=== PATIENT | female | born 1955 | race African-American/Black ===

== ENCOUNTER 2018-03-18 16:08 | Emergency (ER) | END 2018-03-18 17:38 | disposition home or self-care (01) ==

== ENCOUNTER 2018-11-25 07:19 | Observation (INO) | payer OTHER ==
[~2018-11-25] VITALS: Ht 165.1 cm; Wt 88.0 kg
[~2018-11-25 07:19] MED LIST: CARI350T PO; IBUP-1542 PO; MAG355OR14 PO; NAPR-688 PO; unknown meds
[2018-11-25] MEDS ORDERED: NICARDipine HCL 30 MG CAPSULE PO ONE (08:00)
[2018-11-25] MEDS ORDERED: MECLIZINE 12.5 MG TAB PO ONE (08:00)
[2018-11-25] MEDS ORDERED: SOD CHLORIDE 0.9% 1,000 ML IV STA (08:05)
[2018-11-25] MEDS ORDERED: LORAZEPAM 2 MG INJ IV ONE (08:30)
[2018-11-25] MEDS ORDERED: HYDR12.58 PO (09:23)
[2018-11-25] MEDS ORDERED: LISI40TA3 PO (09:23)
[2018-11-25] MEDS ORDERED: METF500T24 PO (09:23)
--- NOTE | 2018-11-25 09:47 | ERD ---
ER Documentation Chief Complaint Chief Complaint dizziness started this morning HPI 63-year-old female history of hypertension, possible noncompliance with medication regimen presents with dizziness. She states that she woke up this morning with a room spinning sensation. She states that it occurs every time she stands up and moves her head from side to side and improves when staying still. She states that she only took 1 of her blood pressure medications this morning. She denies any chest pain or shortness of breath. She denies any headache no vision changes. She is feels somewhat unsteady with her gait. Symptoms are moderate. ROS All systems reviewed and are negative except as per history of present illness. Medications Home Meds Reported Medications Metformin Hcl* (Metformin Hcl*) 500 Mg Tablet, 500 MG PO WITH BREAKFAST DINNE, #60 TAB 11/25/18 Hydrochlorothiazide* (Hydrochlorothiazide*) 12.5 Mg Tablet, 12.5 MG PO DAILY, #30 TAB 11/25/18 Lisinopril* (Lisinopril*) 40 Mg Tablet, 40 MG PO DAILY, #30 TAB 11/25/18 Discontinued Reported Medications [unknown meds] No Conflict Check 02/16/13 Discontinued Scripts Carisoprodol* (Soma*) 350 Mg Tablet, 350 MG PO TID PRN for MUSCLE SPASMS, #15 TAB Prov:ADA CARRILLO MD 03/18/18 Ibuprofen* (Motrin*) 600 Mg Tab, 600 MG PO Q6H PRN for PAIN AND OR ELEVATED TEMP, #20 TAB Prov:ADA CARRILLO MD 03/18/18 Mag Hydrox/Al Hydrox/Simeth (Maalox Advanced Suspension) 355 Ml Oral.susp, 2 TSP PO TID for PAIN, #24 OZ Prov:SAMUEL SANDERS MD 03/10/16 Naproxen* (Naproxen*) 500 Mg Tablet, 500 MG PO BID PRN for PAIN AND/OR INFLAMMATION, #30 TAB Prov:SAMUEL SANDERS MD 03/10/16 Allergies Allergies: Coded Allergies: No Known Allergy (Unverified , 11/25/18) PMhx/Soc History of Surgery: Yes (COLON) Anesthesia Reaction: No Hx Neurological Disorder: No Hx Respiratory Disorders: No Hx Cardiac Disorders: Yes (HTN) Hx Psychiatric Problems: No Hx Miscellaneous Medical Probl: No Hx Alcohol Use: Yes (OCCASSIONAL) Hx Substance Use: No Hx Tobacco Use: No Smoking Status: Never smoker FmHx Family History: No diabetes Physical Exam Vitals Vital Signs Date Temp Pulse Resp B/P (MAP) Pulse Ox O2 O2 Flow FiO2 Time Delivery Rate 11/25/18 98.3 51 18 188/89 96 Room Air 08:58 (122) 11/25/18 98.5 56 20 202/122 96 Room Air 08:00 (148) 11/25/18 98.7 59 24 232/135 96 07:21 (167) Physical Exam General: Well developed, well nourished, no acute distress Head: Normocephalic, atraumatic. Eyes: Pupils equally reactive, EOM intact ENT: Moist mucous membranes Neck: Supple, no lymphadenopathy Respiratory: Lungs clear bilaterally, no distress Cardiovascular: RRR, no murmurs, rubs, or gallops Abdominal: Soft, non-tender, non-distended, no peritoneal signs : Deferred MSK: No edema, no unilateral swelling, 5/5 strength Neurologic: Alert and oriented, moving all extremities, normal speech, no focal weakness, slight ataxia, no abnormalities with rapid alternating movements. Slight horizontal nystagmus, no vertical nystagmus or rotary nystagmus. No pronator drift. Skin: No rash Psych: Normal mood Result Diagram: 11/25/18 0900 11/25/18 0925 Results 24 hrs Laboratory Tests Test 11/25/18 09:00 11/25/18 09:25 White Blood Count 4.4 10^3/ul Red Blood Count 4.98 10^6/ul Hemoglobin 14.4 g/dl Hematocrit 44.4 % Mean Corpuscular Volume 89.2 fl Mean Corpuscular Hemoglobin 28.9 pg Mean Corpuscular Hemoglobin Concent 32.4 g/dl Red Cell Distribution Width 13.4 % Platelet Count 202 10^3/UL Mean Platelet Volume 11.5 fl Immature Granulocytes % 0.200 % Neutrophils % 53.1 % Lymphocytes % 35.9 % Monocytes % 7.8 % Eosinophils % 2.5 % Basophils % 0.5 % Nucleated Red Blood Cells % 0.0 /100WBC Immature Granulocytes # 0.010 10^3/ul Neutrophils # 2.3 10^3/ul Lymphocytes # 1.6 10^3/ul Monocytes # 0.3 10^3/ul Eosinophils # 0.1 10^3/ul Basophils # 0.0 10^3/ul Nucleated Red Blood Cells # 0.0 10^3/ul Sodium Level 144 mmol/L Potassium Level 3.7 mmol/L Chloride Level 106 mmol/L Carbon Dioxide Level 27 mmol/L Anion Gap 11 Blood Urea Nitrogen 13 mg/dl Creatinine 0.66 mg/dl Est Glomerular Filtrat Rate mL/min > 60 mL/min Glucose Level 106 mg/dl Calcium Level 8.6 mg/dl Troponin I < 0.012 ng/ml Current Medications Medications Dose Sig/Loyda Start Time Status Last (Trade) Ordered Route PRN Stop Time Admin Dose Reason Admin Nicardipine 30 mg ONCE ONCE 11/25/18 DC HCl PO 08:00 (Cardene) 11/25/18 08:09 Meclizine 25 mg ONCE ONCE 11/25/18 DC 11/25/18 HCl PO 08:00 08:19 (Antivert) 11/25/18 08:01 Sodium 1,000 ml @ Q1H STAT 11/25/18 DC 11/25/18 Chloride 1,000 mls/hr IV 08:05 08:18 11/25/18 09:04 Lorazepam 0.5 mg ONCE ONCE 11/25/18 DC 11/25/18 (Ativan) IV 08:30 08:19 11/25/18 08:31 25 mg DAILY PO 11/25/18 UNV Hydrochloroth 11:00 iazide (Hydrochlorot hiazide) Lisinopril 40 mg DAILY PO 11/25/18 UNV (Zestril) 11:00 Clonidine 0.1 mg Q4 PRN PO 11/25/18 UNV (Catapres) sbp>170 11:00 Insulin NOVOLOG WITH MEALS 11/25/18 UNV Aspart *MODERATE* BEDTIME SC 12:00 (Novolog ALGORITHM Insulin Pen) Discontinue ONCE ONCE 11/25/18 UNV Miscellaneous all previ... XX 11:00 11/25/18 11:01 Information (* Miscellaneous Pharmacy Order) Amlodipine 5 mg ONCE ONCE 11/25/18 UNV Besylate PO 11:00 (Norvasc) 11/25/18 11:01 Furosemide 40 mg ONCE ONCE 11/25/18 UNV (Lasix) IV 11:00 11/25/18 11:01 Procedures/MDM EKG, MONITORS, & DIAGNOSTIC IMAGING: CT brain IMPRESSION: 1. No acute intracranial pathology. 2. Right frontal calvarial erosive changes involving the inner and outer table without an identifiable soft tissue mass. Consider further evaluation with MRI brain with intravenous contrast. 3. Mild generalized parenchymal volume loss. 4. Mild chronic microvascular white matter ischemic disease. 5. Atherosclerosis. slot service specialist personnel were contacted by Lo 08:45 a.m. on 11/25/2018 with i nstructions to provide the results of this examination to the patient's back pad inspector. RPTAT: HRSR Chest x-ray: I reviewed and interpreted a 1 view of the chest Mediastinum: No enlargement Cardiac silhouette: No cardiomegaly Airspace: Clear lung eng bilaterally without evidence of pneumothorax Bones: No evidence of fracture EKG: I reviewed and interpreted a 12-lead EKG. Rhythm: Sinus bradycardia ST Changes: No contiguous ST segment elevations T waves: No contiguous T wave inversions Impression: [No evidence of acute cardiac ischemia] LAB INTERPRETATION: I reviewed the laboratory testing and it shows [no evidence of acute process] MEDICAL DECISION MAKING: Patient presents with vertigo. Initially this seemed consistent with benign positional vertigo. However the patient has some ataxia component. This is not consistent but concerning for possible central process. The patient's CT of the brain shows possible erosive changes of the calvarium. Unfortunately given the persistence of the symptoms I cannot rule out cerebellar mass. I do believe MRI imaging will be appropriate. Lower clinical concern for ischemic stroke is certainly on the differential. No signs or symptoms concerning for dissection. She has no chest pain. She does have sinus bradycardia but I believe this is unrelated to the patient's vertigo description. Patient's blood pressure is significantly elevated. Noncompliance with medication regimen is likely etiology. The PA pressure has trended down nicely and no indication for rapidly lowering. Risks outweigh the benefits. ER COURSE: * Given the persistence of symptoms the patient would warrant inpatient hospitalization for telemetry monitoring, MRI imaging * Patient given IV fluids meclizine and Ativan. * Blood pressure trending down. Permissive hypertension given possibility of subacute stroke would be appropriate. Patient improved slightly. CONSULTATION: [None] DISPOSITION PLAN: Accepting care team and consultations: I discussed the current laboratory data, diagnostic imaging and emergency care provided. Admitting team: Dr. Doherty Admitting team indication: Insurance directed Departure Diagnosis: Primary Impression: Vertigo Additional Impression: Hypertensive urgency Condition: Stable NAVIN DIETRICH MD Nov 25, 2018 09:47
[2018-11-25] MEDS: INSULIN ASPART [NOVOLOG] 3 ML PEN SC SCH ×3 (12:00→20:15)
[2018-11-25] MEDS ORDERED: FUROSEMIDE 40 MG INJ IV ONE (12:30)
[2018-11-25] MEDS ORDERED: AMLODIPINE 5 MG TAB PO ONE (12:30)
[2018-11-25] MEDS ORDERED: DEXTROSE 50% 50 ML SYRINGE IV PRN ×2 (13:00)
[2018-11-25] MEDS ORDERED: GLUCAGON 1 MG INJ IM PRN (13:00)
[2018-11-25] MEDS ORDERED: GLUCOSE GEL 15 GRAM TUBE PO PRN ×2 (13:00)
[2018-11-25] MEDS ORDERED: GLUCOSE GEL 15 GRAM TUBE BUCCAL PRN (13:00)
[2018-11-25] MEDS: LISINOPRIL 20 MG TAB PO SCH (13:41)
[2018-11-25] MEDS: HYDROCHLOROTHIAZIDE 25 MG TAB PO SCH (13:41)
[2018-11-25 20:52] VITALS: PULSE 69
--- NOTE | 2018-11-25 21:29 | HP ---
DATE OF ADMISSION: 11/25/2018 CHIEF COMPLAINT: Dizziness. HISTORY OF PRESENT ILLNESS: A 63-year-old -Citizen Of [place] female with poorly controlled hypertensio n and type 2 diabetes mellitus, presents to emergency room with complaint of headache and dizziness s charbel early in the morning. The patient denies any visual changes. No focal weakness or numbness. N o chest pain or shortness of breath. Initial blood pressure was as high as 232/135. Blood pressure improved in the emergency room to 188/89. Pulse was 51. The patient remained symptomatic with diffi culty ambulating. CAT scan of the brain showed right frontal calvarial erosive changes involving the inner and outer table without unidentifiable soft tissue mass. MRI of brain with intravenous contra st was recommended. PAST MEDICAL HISTORY: 1. Hypertension. 2. Type 2 diabetes mellitus. MEDICATIONS PRIOR TO ADMISSION: 1. Lisinopril 40 mg daily. 2. Hydrochlorothiazide 12.5 mg daily. 3. Metformin 500 mg b.i.d. SOCIAL HISTORY: The patient denies tobacco or alcohol use. Her primary care provider was planning t o refer her to senior planning analyst due to poorly controlled hypertension. PHYSICAL EXAMINATION: GENERAL: Well-developed, well-nourished female who is in no apparent distress. VITAL SIGNS: Show blood pressure of 188/89, pulse of 55, temperature 98.3, respirations 18. HEENT: Extraocular muscles intact. Pupils equal and reactive to light bilaterally. Sclerae are ani cteric. Oropharynx is clear and moist. NECK: Supple. No JVD, no carotid bruits. LUNGS: Clear to auscultation bilaterally. CARDIAC: Regular rate and rhythm. No murmurs, rubs, or gallops. ABDOMEN: Soft, nontender, nondistended. Normoactive bowel sounds. EXTREMITIES: No clubbing, cyanosis, or edema. NEUROLOGIC: There is mild nystagmus. Cranial nerves II through XII are otherwise intact. Motor and sensory is intact. Patient has mild ataxia. LABORATORY DATA: CBC is within normal limits. Basic metabolic panel is also normal. Troponin is le ss than 0.012. ASSESSMENT: A 63-year-old female presenting with: 1. Dizziness and ataxia. Rule out acute cerebrovascular accident versus benign positional vertigo. 2. Poorly controlled hypertension. 3. Frontal calvarial erosive changes on brain CAT scan. 4. Type 2 diabetes mellitus. PLAN: 1. Place in tele observation. Continue lisinopril. Increase hydrochlorothiazide to 25 mg daily. 2. Add Norvasc 10 mg p.o. daily. 3. MRI of brain with IV contrast, neuro checks, physical therapy, bilateral carotid Doppler. Plan of care was discussed with patient and ER physician. Dictated By: SAMANTHA ROBERTS/TAYLOR Conf#: [id number] DID#: [id number]
[2018-11-25 21:43] VITALS: BP 164/119; PULSE 74; RESP 19
[2018-11-25 21:45] VITALS: Ht 165.1 cm; Wt 88.0 kg
[2018-11-26] VITALS (8 sets, daily range): BP systolic 124–139; BP diastolic 73–94; PULSE 56–105; RESP 16–22
[2018-11-26] MEDS: INSULIN ASPART [NOVOLOG] 3 ML PEN SC SCH (07:31)
[2018-11-26] MEDS: HYDROCHLOROTHIAZIDE 25 MG TAB PO SCH (08:48)
[2018-11-26] MEDS: LISINOPRIL 20 MG TAB PO SCH (08:49)
[2018-11-26] MEDS ORDERED: MECL-77 PO (11:03)
[2018-11-26] MEDS ORDERED: HYDR25TA6 PO (11:03)
[2018-11-26] MEDS ORDERED: AMLO5TAB4 PO (11:03)
--- NOTE | 2018-11-26 11:04 | PDOCDIS ---
Discharge Instructions CONDITION [id number] Patient Condition: [id number] Good HOME CARE INSTRUCTIONS: [id number] Diet Instructions: [id number] Activity Restrictions: [id number] Slowly Increase Activity Do not operate Machinery FOLLOW UP/APPOINTMENTS Follow-up Plan pcp 1 week SAMANTHA GRAYSON MD Nov 26, 2018 11:04
--- NOTE | 2018-11-27 05:53 | DS ---
DATE OF ADMISSION: 11/25/2018 DATE OF DISCHARGE: 11/26/2018 DISCHARGE DIAGNOSES: 1. Benign positional vertigo. 2. Poorly controlled hypertension, resolved. 3. Type 2 diabetes mellitus. HOSPITAL COURSE: A 63-year-old female with clinical uncontrolled hypertension and t ype 2 diabetes mellitus, presented to emergency room with complaint of headache and dizziness. There was no other focal weakness or numbness. The patient was noted to have initial blood pressure of 23 2/135. This improved over time. CAT scan of the brain showed right frontal calvarial erosive change s involving the inner and outer ____ without identifiable soft tissue mass. I ordered an MRI of brai n with contrast as recommended. This study showed no acute intracranial pathology. A lytic lesion i n the right frontal calvarium, probably represented a benign arachnoid granulation. Her blood pressu re was well controlled. She was diagnosed with benign positional vertigo. The patient is in a stabl e condition for discharge. I also ordered a carotid duplex study which showed no sonographic evidenc e of hemodynamically significant carotid stenosis or occlusion. The patient is in a stable condition for discharge. I increased her hydrochlorothiazide to 25 mg daily. PLAN: 1. Discharged home. 2. Avoid operating machinery and avoid driving until symptoms of vertigo are resolved. 3. Follow up with PCP in 1 week. MEDICATIONS ON DISCHARGE: 1. Lisinopril 40 mg daily. 2. Hydrochlorothiazide 25 mg daily. 3. Metformin 500 mg b.i.d. 4. Antivert 25 mg q.8 hours p.r.n. Dictated By: SAMANTHA ROBERTS/TAYLOR Conf#: [id number] DID#: [id number]
== END 2018-11-26 12:59 | disposition home or self-care (01) ==
LOC: E/R 07:19 → 6WM 10:39
PROVIDERS: ADMIT Internal Medicine; ATTEND Internal Medicine
DX: H81.10 Benign paroxysmal vertigo, unspecified ear (principal); I10 Essential (primary) hypertension; E11.9 Type 2 diabetes mellitus without complications; Z79.84 Long term (current) use of oral hypoglycemic drugs
CPT/HCPCS: 36415; 70450; 70552; 71045; 80048; 82962; 84484; 85025; 93005; 93880; 96374; 97162; J1815; J1940; J2060; J7030; Z7500; Z7502; Z7610; G0378